=== PATIENT | female | born 1945 | race Caucasian/White ===

== ENCOUNTER 2016-12-28 12:23 | Outpatient (CLI) | payer MEDICARE | END 2016-12-28 12:24 | disposition home or self-care (01) | DX: R01.1 Cardiac murmur, unspecified (principal); I51.7 Cardiomegaly ==

== ENCOUNTER 2016-12-28 12:25 | Outpatient (CLI) | payer MEDICARE | END 2016-12-28 12:26 | disposition home or self-care (01) | DX: Z12.31 Encounter for screening mammogram for malignant neoplasm of breast (principal) ==

== ENCOUNTER 2018-11-28 17:08 | Outpatient (CLI) | payer SELFPAY | END 2018-11-28 17:09 | disposition EMS.NT | LOC: EMS 17:08 | PROVIDERS: ATTEND Surgery | DX: R62.7 Adult failure to thrive (principal) ==